=== PATIENT | female | born 1960 | race Caucasian/White ===

== ENCOUNTER → 2020-02-08 | Day surgery (SDC) | payer OTHER ==
[~2020-02-08] MED LIST: FLEET ENEMA133 ML PR; STOOL SOFTENER250 MG PO; SUBOXONE 8 MG-1 EAC2 SL; [UNRECOGNIZED DRUG - OTHER] PO
[2020-02-08 13:45] VITALS: BP 147/88
--- NOTE | 2020-02-08 19:37 | Operative Report ---
DATE OF PROCEDURE: 02/08/2020 SURGEON: Xiang Gonzalez MD PROCEDURE: Colonoscopy note. INDICATIONS FOR COLONOSCOPY: Colorectal cancer screening, constipation. MEDICATIONS: The patient was under MAC, please see anesthesiologist's note. PROCEDURE IN DETAIL: With the patient in left lateral decubitus position, a flexible fiberoptic Olympus colonoscope was inserted into the rectum with ease and advanced all the way to the cecum. It was then withdrawn slowly, mucosa overlying the cecum, ascending colon, transverse, descending, sigmoid, and rectum grossly appeared to be within normal limits. Of note, the colon was excessively spastic and irritable. The scope was then retroflexed into the distal rectum and moderate-sized internal hemorrhoids were noted, none of which was actively bleeding. The scope was then straightened out, it was subsequently withdrawn. The patient tolerated the procedure well. IMPRESSION: 1. Colon excessively tortuous and spastic. 2. Internal hemorrhoids, none actively bleeding. PLAN: 1. Initiate high-fiber, low-fat diet. 2. Initiate high-fiber supplement. 3. Check TSH. 4. The patient might benefit from a followup colonoscopy in 10 years. Xiang Gonzalez MD [facility] [place] /[id number] cc: Jesusita Elise MD
== END | disposition home or self-care (01) ==
LOC: OR 11:05
PROVIDERS: ATTEND Internal Medicine Gastroenterology
DX: K59.09 Other constipation (principal); K58.9 Irritable bowel syndrome, unspecified; K64.8 Other hemorrhoids; R03.0 Elevated blood-pressure reading, without diagnosis of hypertension; G89.29 Other chronic pain; M19.90 Unspecified osteoarthritis, unspecified site; R01.1 Cardiac murmur, unspecified; I44.7 Left bundle-branch block, unspecified; F17.210 Nicotine dependence, cigarettes, uncomplicated; Z88.6 Allergy status to analgesic agent; Z01.810 Encounter for preprocedural cardiovascular examination; Z01.812 Encounter for preprocedural laboratory examination; Z11.59 Encounter for screening for other viral diseases; Z68.34 Body mass index [BMI] 34.0-34.9, adult
CPT/HCPCS: 36415; 45378; 84443; 93005; U0002